=== PATIENT | male | born 1980 | race Caucasian/White ===

== ENCOUNTER 2020-06-26 08:48 | Outpatient (CLI) | payer OTHER, SELFPAY ==
[2020-06-29 03:50] LABS: Patient Race White; SARS-CoV-2 RNA Undetected (Undetected); SARS-CoV-2 Specimen Source Nasopharynx
== END 2020-06-26 09:08 ==
PROVIDERS: PCP Nurse Practitioner Family; Visit Provider Nurse Practitioner Family
DX: Z11.59 Encounter for screening for other viral diseases (principal)
CPT/HCPCS: U0003

== ENCOUNTER 2025-05-06 16:31 | Outpatient (REF) | payer OTHER, SELFPAY ==
[2025-05-07 10:55] LABS: Lyme Ab w Rflx to Lyme Confirm Negative (Negative)
== END 2025-05-06 16:32 | disposition home or self-care (01) ==
LOC: LBN 16:31
PROVIDERS: Visit Provider Physician Assistant Medical
DX: R21 Rash and other nonspecific skin eruption (principal)
CPT/HCPCS: 86618